=== PATIENT | male | born 1960 | race Caucasian/White ===

== ENCOUNTER 2019-09-22 14:51 | Inpatient (IN) | payer OTHER ==
[~2019-09-22] VITALS: Ht 182.9 cm; Wt 95.6 kg
[~2019-09-22 14:51] MED LIST: ACYC400 PO; ASPI81EC PO; LEVSOD100 PO; LISI20 PO; SIMV40 PO
[2019-09-22 15:16] LABS: BASOPHILS ABSOLUTE AUTO 0.01 K/mm3 (0.00-0.23); BASOPHILS PERCENT AUTO 0 % (0-2); EOSINOPHILS PERCENT AUTO 0 % (0-6); Hematocrit 52.1 % (37.0-53.0); Hemoglobin 17.7 g/dL (13.5-17.5); IMMATURE GRAN ABSOLUTE AUTO 0.04 K/mm3 (0.00-0.10); IMMATURE GRAN PERCENT AUTO 0 % (0-1); LYMPHOCYTES ABSOLUTE AUTO 1.11 K/mm3 (0.84-5.20); LYMPHOCYTES PERCENT AUTO 9 % (21-46); MONOCYTES ABSOLUTE AUTO 1.39 K/mm3 (0.16-1.47); MONOCYTES PERCENT AUTO 11 % (4-13); Mean Corpuscular HGB 32.5 pg (26.0-34.0); Mean Corpuscular Volume 96 fL (80-100); Mean Platelet Volume 9.7 fL (9.1-12.4); NEUTROPHILS ABSOLUTE AUTO 9.67 K/mm3 (1.96-9.15); NEUTROPHILS PERCENT AUTO 79 % (41-73); Platelet Count 237 K/mm3 (150-400); RDW Coefficient Variation 12.5 % (11.7-14.2); Red Blood Cell Count 5.45 M/mm3 (4.30-5.90); White Blood Cell Count 12.22 K/mm3 (4.00-11.30)
[2019-09-22 15:30] LABS: Calcium, Ionized (POC) 1.14 mmol/L (1.10-1.46); Chloride (POC) 105 mmol/L (98-108); Glucose (ISTAT POC) 115 mg/dL (70-99); Hemoglobin (POC) 18.4 g/dL (13.5-17.5); Sodium (POC) 136 mmol/L (135-148); Total CO2 (POC) 22 mmol/L (21-32)
[2019-09-22 15:36] LABS: Alanine Aminotransfer (ALT/SGP 40 U/L (12-78); Albumin, Blood 3.7 g/dL (3.4-5.0); Alk Phos 59 U/L (50-136); Anion Gap 7 mmol/L (6-16); Aspartate Aminotrans (AST/SGOT 14 U/L (12-37); Bilirubin, Total 1.7 mg/dL (0.1-1.0); Blood Urea Nitrogen 16 mg/dL (8-24); Bun/Creatinine Ratio 16.5 (12.0-20.0); CO2, Blood 24 mmol/L (21-32); Calcium, Blood 8.8 mg/dL (8.5-10.1); Chloride, Blood 107 mmol/L (98-108); Creatinine, Blood 0.97 mg/dL (0.60-1.20); Globulin, Blood 3.8 g/dL (2.2-4.0); Glomerular Filtration Rate >60 (60-); Glucose, Blood 114 mg/dL (70-99); Sodium, Blood 138 mmol/L (136-145); Total Protein, Blood 7.5 g/dL (6.4-8.2); Troponin I <0.015 ng/mL (0.000-0.040)
--- NOTE | 2019-09-22 17:41 | NUR ---
PT ARRIVED TO ICU FROM [facility] [employer] [facility] AT 1630. RIGHT RADIAL ACCESS, TR BAND IN PLACED c 11ML OF AIR. SOFT, NON TENDER, NO SWELLING NOTED. ARM BOARD IN PLACE. ACT 235. NO STENTS PLACED. CTA COMPLETE PRIOR TO ARRIVAL. PT STATES PAIN CURRENTLY 5/10, SUBSTERNAL. INCREASES c EXERTION OR DEEP INSPIRATION. REPORTS RADIATION TO SHOULDERS BILATERALLY, STATES PAIN STARTED YESTERDAY. SEEN IN ER AT THAT TIME AND D/C'D HOME. LUNGS CLEAR. PT A&OX 4. ANSWERS QUESTIONS APPROPRIATELY. NAUN. INDEPENDENT. ABLE TO REPOSITION SELF IN BED. WILL CONTINUE TO MONITOR UNTIL REPORT TO ONCOMING NURSE.
[2019-09-22 17:56] LABS: CPK Creatine Kinase 50 U/L (39-308); Troponin I <0.015 ng/mL (0.000-0.040)
[2019-09-22 18:03] LABS: Creatine Kinase MB <1.0 ng/mL (0.0-3.6); Creatine Kinase MB Index Unable to Calculate (0.0-4.0)
--- NOTE | 2019-09-22 19:06 | NUR ---
ASSUMED PT CARE AT 1900 FROM RHINA CASTRO PT SITTING UP IN BED FINISHING HIS DINNER TRAY. FRIEND AT BEDSIDE. PT APPEARS ALERT AND ORIENTED AND ABLE TO MAKE HIS NEEDS KNOWN. TR BAND IN PLACE TO RIGHT RADIAL ACCESS. MINIMAL OOZING NOTED TO SITE; HOWEVER, SURROUNDING TISSUE IS SOFT, NON-TENDER WITH NO SIGNS OF HEMATOMA NOTED. NS INFUSING AT 200MLS/HR. CALL LIGHT WITHIN REACH; PT ABLE TO MAKE HIS NEEDS KNOWN.
[2019-09-23 03:27] LABS: BASOPHILS ABSOLUTE AUTO 0.01 K/mm3 (0.00-0.23); BASOPHILS PERCENT AUTO 0 % (0-2); EOSINOPHILS PERCENT AUTO 0 % (0-6); IMMATURE GRAN ABSOLUTE AUTO 0.04 K/mm3 (0.00-0.10); IMMATURE GRAN PERCENT AUTO 0 % (0-1); LYMPHOCYTES ABSOLUTE AUTO 0.77 K/mm3 (0.84-5.20); LYMPHOCYTES PERCENT AUTO 7 % (21-46); MONOCYTES ABSOLUTE AUTO 1.32 K/mm3 (0.16-1.47); MONOCYTES PERCENT AUTO 12 % (4-13); Mean Corpuscular HGB 32.9 pg (26.0-34.0); Mean Corpuscular Volume 97 fL (80-100); NEUTROPHILS ABSOLUTE AUTO 9.07 K/mm3 (1.96-9.15); NEUTROPHILS PERCENT AUTO 81 % (41-73); Platelet Count 206 K/mm3 (150-400); RDW Coefficient Variation 12.8 % (11.7-14.2); RDW Standard Deviation 46.1 fL (35.1-46.3); Red Blood Cell Count 4.86 M/mm3 (4.30-5.90); White Blood Cell Count 11.21 K/mm3 (4.00-11.30)
[2019-09-23 03:46] LABS: Anion Gap 6 mmol/L (6-16); Blood Urea Nitrogen 17 mg/dL (8-24); Bun/Creatinine Ratio 18.1 (12.0-20.0); CO2, Blood 24 mmol/L (21-32); CPK Creatine Kinase 46 U/L (39-308); Calcium, Blood 8.3 mg/dL (8.5-10.1); Chloride, Blood 107 mmol/L (98-108); Creatine Kinase MB 1.2 ng/mL (0.0-3.6); Creatine Kinase MB Index 2.6 (0.0-4.0); Creatinine, Blood 0.94 mg/dL (0.60-1.20); Glomerular Filtration Rate >60 (60-); Glucose, Blood 131 mg/dL (70-99); Sodium, Blood 137 mmol/L (136-145); Troponin I 0.406 ng/mL (0.000-0.040)
--- NOTE | 2019-09-23 05:34 | NUR ---
END OF SHIFT SUMMARY NO SIGNIFICANT CHANGES T/O NIGHT. PT MEDICATED X1 WITH TRAMADOL D/T 10 CHEST PAIN LEVEL; PT STATED EFFECTIVE. R RADIAL SITE IS SOFT, NON-TENDER WITH NO SIGNS OF HEMATOMA; TEGADERM DRESSING IS CDI. PT VERY COMPLIANT WITH WEIGHT BEARING AND ACTIVITY PRECAUTIONS ON RIGHT ARM/HAND. PT REMAINED IN NSR WITH ST ELEVATION T/O NIGHT WITH HR 80'S. BP'S STABLE, SEE FLOWSHEET. OBTAINED EKG THIS MORNING PER ORDERS, EKG PLACED IN CHART. PT STATES HIS CHEST PAIN IS WORSE WHEN LYING FLAT AND TAKING DEEP BREATHS IN. DENIES ANY RELIEF WHEN LEANING FORWARD. NO C/O PAIN RADIATING ANYWHERE ELSE; PAIN IS DESCRIBED SHARP IN STAYS IN MID CHEST AREA. PT UP TO BATHROOM X1; VOIDING ADEQUATELY. FLUID INTAKE IS ADEQUATE. CALL LIGHT WITHIN REACH; PT IS ABLE TO MAKE HIS NEEDS KNOWN. WILL CONTINUE TO MONITOR UNTIL REPORT IS HANDED OFF TO ONCOMING RN.
--- NOTE | 2019-09-23 07:00 | NUR ---
REC'D BEDSIDE REPORT FROM RHINA AYALA AND AM NOW ASSUMING CARE OF THIS PT.
--- NOTE | 2019-09-23 07:32 | NUR ---
AM ASSESSMENT: PT IS ALERT AND ORIENTED X3. PLEASANT AND COOPERATIVE WITH CARE. PT REPORTS 3/10 SUBSTERNAL CHEST PAIN. DENIES ANY PAIN RADIATION AND REPORTS PAIN INCREASES WITH MOVEMENT AND DEEP BREATHES. TORADOL HAS PROVED HELPFUL IN REDUCING CHEST PAIN WHEN GIVEN BY NOC RN. PT MOVES SELF INDEPENDENTLY IN BED. CALL LIGHT WITHIN REACH. LUNGS ARE CLEAR T/O BILATERALLY. BREATHES EVEN AND UNLABORED AT REST. HR REGULAR, SR WITH W/CONTINUED ST ELEVATION, SEE THIS AM'S EKG FOR REFERENCE. PIV'S PATENET/SL'D AT THIS TIME. ABD SOFT/ROUND/NON-TENDER WITH ACTIVE BT'S X4. PT DENIES NAUSEA AT THIS TIME. -FULL CODE
--- NOTE | 2019-09-23 07:57 | NUR ---
DR NICHOLSON AT THE BEDSIDE TO ASSESS PT. UPDATED DR WITH PT'S CURRENT STATUS. SEE NEW ORDERS. PT NOW PCU STATUS.
--- NOTE | 2019-09-23 17:36 | NUR ---
PT REPORTS HE HAD SOME ABD CRAMPING. PT TO START ON BOWEL CARE PROTOCOL, WILL GIVE DOCUSATE EARLY. PT REPORTS ABD DISCOMFORT WAS RELIEVED AFTER GETTING OOB AND AMBULATING TO THE TOILET. PT HOWEVER, WAS UNABLE TO HAVE A BM.
--- NOTE | 2019-09-23 18:10 | NUR ---
PT PLACED ON TELEMETRY PER REQUEST AND IS CURRENTLY AMBULATING AROUND THE FACILITY AND REPORTS THIS HAS HELPED HIS ABD DISCOMFORT.
--- NOTE | 2019-09-23 18:22 | NUR ---
SHIFT SUMMARY: PT REMAINS A+O X3. PLEASANT AND COOPERATIVE WITH CARE. PT REPORTS ONGOING SUBSTERNAL CHEST PAIN THAT DR NICHOLSON CONTRIBUTES TO PERICARDITIS. PT REPORTS PAIN IS MORE MILD THIS AFTERNOON IN COMPARISON TO THIS AM, HOWEVER, CONTINUES TO INCREASE IN THE STRENGTH OF THE STABBING FEELING WITH MOVEMENT/DEEP BREATHES. PT REMAINS INDEPENDENT IN THE RM AND USES CALL LIGHT APPROPRIATELY. ABLE TO TRANSFER AROUND RM/UNIT WITH STEADY GAIT. LUNGS REMAIN CLEAR T/O BILATERALLY. SP02 >90% ON RA. TELEMETRY SHOWS SR WITH CONTINUED ST ELEVATION IN II/AVF, AND V2-V6. PIV'S ARE SL'D. ABD SOFT/ROUND/NON-TENDER. BT'S ARE ACTIVE X 4 AND PT HAS A GOOD APPETITE. PT ATTEMPTED TO HAVE BM PER TOILET, WITHOUT SUCCESS. PT STARTED ON DOCUSATE TODAY.
--- NOTE | 2019-09-23 19:28 | NUR ---
REPORTED OFF TO RHINA ZUNIGA WHOM IS NOW GOING TO ASSUME CARE OF THIS PT.
--- NOTE | 2019-09-23 20:19 | NUR ---
ASSUMED CARE OF PT AT 1915. REPORT RECEIVED AT BEDSIDE. PT PRESENTS IN BED. ALERT AND ORIENTED. PLEASANT AND COOPERATIVE WITH CARE AND ASSESSMENT. DENIES CHEST PAIN OR PRESSURE AT THIS TIME. PT HAS ARM BOARD OVER RIGHT RADIAL ACCESS SITE. VERY MINIMAL ENDURATION AT SITE. NO OOZING. GOOD DISTAL CMS CHECKS. WILL REVIEW CHART AND PLAN OF CARE FOR THIS PT. PT TO BE TRANSFERRED TO PCU 14 WHEN RECIEVING RN IS AVAILABLE. PT MADE AWARE AND IS ACCEPTING OF TRANSFER.
--- NOTE | 2019-09-24 06:46 | NUR ---
SHIFT SUMMARY: PT TRANSFERED FROM ICU LAST NIGHT AT APPROX 2049. VSS THROUGHOUT SHIFT. PT COMPLAINED OF 5/10 CHEST PAIN ONCE AND WAS MEDICATED WITH ULTRAM WHICH WAS EFFECTIVE. PT DENIES CP THIS MORNING. ACCESS SITE TO R WRIST WNL WITHOUT SIGNS OF BLEEDING. ARMBOARD IN PLACE. SALINE LOCKED AND ANUSHA FLUIDS. POSSIBLE DISCHARGE TODAY.
[2019-09-24] MEDS ORDERED: COLCRYS0.6 M1 PO (09:08)
[2019-09-24] MEDS ORDERED: IBUP400 (09:09)
[2019-09-24] MEDS ORDERED: OMEP20ER (09:10)
[2019-09-24] MEDS ORDERED: TRAM50 PO (09:10)
--- NOTE | 2019-09-24 09:30 | NUR ---
DISCHARGE SUMMARY PATIENT ALERT AND ORIENTED X4 AND INDEPENDENT IN ROOM. PATIENT DENIES ANY QUESTIONS OR CONCERNS. IV'S REMOVED W/ CATHETERS INTACT. VSS. DISCHARGE INSTRUCTIONS GIVEN VERBALLY AND WRITTEN. PATIENT AMBULATED OUT OF UNIT W/ NO DISTRESS NOTED. REPORTED TO PRIMARY RN.
== END 2019-09-24 09:25 | disposition home or self-care (01) | DRG 287 ==
LOC: ER 14:51 → ICUW 14:52 → ICUE 16:00 → PCU 09-23 20:54
PROVIDERS: Emergency Medicine; Physician Assistant; ADMIT Internal Medicine Interventional Cardiology
PROC: 4A023N7 Measurement of Cardiac Sampling and Pressure, Left Heart, Percutaneous Approach (ICD-10-PCS; principal; 2019-09-22)
PROC: B2111ZZ Fluoroscopy of Multiple Coronary Arteries using Low Osmolar Contrast (ICD-10-PCS; 2019-09-22)
DX: I31.9 Disease of pericardium, unspecified (principal); E03.9 Hypothyroidism, unspecified; E78.00 Pure hypercholesterolemia, unspecified; Z86.73 Personal history of transient ischemic attack (TIA), and cerebral infarction without residual deficits; I10 Essential (primary) hypertension
CPT/HCPCS: 36415; 71275; 76937; 80047; 80048; 80053; 82550; 82553; 83880; 84484; 85014; 85025; 85347; 85651; 86141; 93005; 93010; 93306; 93458; 96374; 99152; 99153; 99285-25; A9270; A9270-GY; C1769; C1887; C1894; J1644; J1885; J2250; J2270; J3010; J7030; J7040; Q9967

== ENCOUNTER 2019-11-25 13:13 | Emergency (ER) | payer OTHER ==
[~2019-11-25] VITALS: Ht 182.9 cm; Wt 90.7 kg
[~2019-11-25 13:13] MED LIST changes: +COLCRYS0.6 M1 PO; +IBUP400; +OMEP20ER; +TRAM50 PO
[2019-11-25 13:53] LABS: BASOPHILS ABSOLUTE AUTO 0.01 K/mm3 (0.00-0.23); BASOPHILS PERCENT AUTO 0 % (0-2); EOSINOPHILS PERCENT AUTO 0 % (0-6); Hematocrit 46.9 % (37.0-53.0); Hemoglobin 15.9 g/dL (13.5-17.5); IMMATURE GRAN ABSOLUTE AUTO 0.03 K/mm3 (0.00-0.10); IMMATURE GRAN PERCENT AUTO 0 % (0-1); LYMPHOCYTES ABSOLUTE AUTO 0.98 K/mm3 (0.84-5.20); LYMPHOCYTES PERCENT AUTO 9 % (21-46); MONOCYTES ABSOLUTE AUTO 1.31 K/mm3 (0.16-1.47); MONOCYTES PERCENT AUTO 12 % (4-13); Mean Corpuscular HGB 32.2 pg (26.0-34.0); Mean Corpuscular HGB Conc 33.9 g/dL (31.5-36.5); Mean Corpuscular Volume 95 fL (80-100); Mean Platelet Volume 10.1 fL (9.1-12.4); NEUTROPHILS ABSOLUTE AUTO 8.62 K/mm3 (1.96-9.15); NEUTROPHILS PERCENT AUTO 79 % (41-73); Platelet Count 238 K/mm3 (150-400); RDW Coefficient Variation 12.2 % (11.7-14.2); RDW Standard Deviation 43.4 fL (35.1-46.3); Red Blood Cell Count 4.94 M/mm3 (4.30-5.90); White Blood Cell Count 10.95 K/mm3 (4.00-11.30)
[2019-11-25 14:14] LABS: Troponin I <0.015 ng/mL (0.000-0.040)
[2019-11-25 14:15] LABS: Alanine Aminotransfer (ALT/SGP 44 U/L (12-78); Albumin, Blood 2.9 g/dL (3.4-5.0); Albumin/Globulin Ratio 0.7 (0.8-1.8); Alk Phos 74 U/L (50-136); Anion Gap 5 mmol/L (6-16); Aspartate Aminotrans (AST/SGOT 20 U/L (12-37); Bilirubin, Total 1.1 mg/dL (0.1-1.0); Blood Urea Nitrogen 11 mg/dL (8-24); Bun/Creatinine Ratio 13.7 (12.0-20.0); CO2, Blood 26 mmol/L (21-32); Calcium, Blood 8.9 mg/dL (8.5-10.1); Chloride, Blood 105 mmol/L (98-108); Globulin, Blood 4.3 g/dL (2.2-4.0); Glomerular Filtration Rate >60 (60-); Glucose, Blood 126 mg/dL (70-99); Potassium, Blood 3.8 mmol/L (3.5-5.5); Sodium, Blood 136 mmol/L (136-145); Total Protein, Blood 7.2 g/dL (6.4-8.2)
[2019-11-25] MEDS ORDERED: CEFD300 PO (16:43)
[2019-11-25] MEDS ORDERED: Percocet 5-3251 EACH PO (16:43)
[2019-11-25] MEDS ORDERED: ONDA4ODT SL (16:43)
[2019-11-25] MEDS ORDERED: COLCHICINE0.6 MG PO (16:43)
== END 2019-11-25 17:14 | disposition home or self-care (01) ==
LOC: ER 13:13
PROVIDERS: Physician Assistant
DX: I31.9 Disease of pericardium, unspecified (principal); I10 Essential (primary) hypertension; E03.9 Hypothyroidism, unspecified; Z88.1 Allergy status to other antibiotic agents; Z79.899 Other long term (current) drug therapy
CPT/HCPCS: 36415; 71046; 80053; 83880; 84484; 85025; 93005; 93010; 93306; 96374-59; 96375-59; 99284-25; J1170; J1885; J2405